=== PATIENT | male | born 1970 | race Caucasian/White ===

== ENCOUNTER 2022-07-12 21:01 | Emergency (ER) | payer SELFPAY ==
[~2022-07-12] VITALS: Ht 175.3 cm; Wt 105.0 kg
[2022-07-12] MEDS ORDERED: TETRACAINE 0.5% OPHTH DROPS 4ML BOTHEYE ONE (23:00)
[2022-07-12] MEDS ORDERED: FLUORESCEIN SODIUM 1MG/STRIP BOTHEYE ONE (23:00)
[2022-07-12] MEDS ORDERED: ERYT1OIN6 EACHEYE (23:10)
[2022-07-12 23:20] VITALS: BP 118/74
== END 2022-07-12 23:55 | disposition home or self-care (01) ==
LOC: ER 21:01
DX: H57.89 Other specified disorders of eye and adnexa (principal)
CPT/HCPCS: 99283